=== PATIENT | female | born 1955 | race Two or more races ===

== ENCOUNTER 2018-08-24 11:14 | Outpatient (CLI) | payer OTHER ==
[~2018-08-24 11:14] MED LIST: ASA81 MG PO; ATACAND32 MG PO; CIPRO500 MG PO; IMDUR30 MG PO; LOSARTAN-HCTZ1 EAC1 PO; NITROQUICK0.4 MG SL; NORVASC2.5 MG PO; NORVASC5 MG PO; PLAVIX75 MG PO; POLY119PG PO; PREVACID30 MG PO; PRILOSEC20 MG PO; SURFAK240 M1 PO; SYNTHROID50 MCG PO; ULTRACET PO; VASOTEC10 MG NGT; [UNRECOGNIZED DRUG - OTHER]
== END 2018-08-24 11:38 | disposition home or self-care (01) ==
LOC: RAD 501 11:14
DX: R07.89 Other chest pain (principal)

== ENCOUNTER 2018-10-19 17:41 | Inpatient (IN) | payer OTHER ==
[~2018-10-19] VITALS: Ht 160 cm; Wt 131.1 kg
[~2018-10-19 17:41] MED LIST changes: -COUMADIN4 MG PO; -COZAAR50 MG; -HYDROCHLOROTH12.5 MG PO; -INDUR; -LOSARTAN POTAS100 MG PO; -TOPROL XL25 MG; -TOPROL XL50 M1 PO
[2018-10-19] MEDS ORDERED: TOPROL XL25 MG (17:52)
[2018-10-19] MEDS ORDERED: INDUR (17:52)
[2018-10-19] MEDS ORDERED: COZAAR50 MG (17:53)
--- NOTE | 2018-10-19 18:00 | NUR ---
SE RECIBE PTE LA CUAL LLEGA ER POR ORDEN DE DR. ONTIVEROS LA MISMA REFIERE PRESENTAR DVT EN MAURIZIO PHAM. SE OBSERVA PIERNA IZQ INFLAMADA.
--- NOTE | 2018-10-19 18:51 | NUR ---
MS RIOS ORIENTA PTE SOBRE ADMNISTRACION DE MEDICAMENTO LA CUAL SE REALIZA LIZBET ORDEN MEDICA.
[2018-10-27] MEDS ORDERED: TOPROL XL50 M1 PO ×2 (09:48)
[2018-10-27] MEDS ORDERED: LOSARTAN POTAS100 MG PO ×2 (09:48)
[2018-10-27] MEDS ORDERED: HYDROCHLOROTH12.5 MG PO ×2 (09:49)
[2018-10-27] MEDS ORDERED: COUMADIN4 MG PO ×2 (09:50)
== END 2018-10-27 12:29 | disposition home or self-care (01) | DRG 301 ==
LOC: ER 17:41 → SURH 20:28 → SEC-K 20:28 → SURG 10-20 00:35 → SURH 10-20 00:36 → MEDI 10-23 16:44
PROVIDERS: ADMIT Internal Medicine
DX: I82.492 Acute embolism and thrombosis of other specified deep vein of left lower extremity (principal); E66.01 Morbid (severe) obesity due to excess calories; I11.9 Hypertensive heart disease without heart failure

== ENCOUNTER → 2018-10-19 | Outpatient (CLI) | payer OTHER ==
[~2018-10-19] MED LIST changes: +COUMADIN4 MG PO; +COZAAR50 MG; +HYDROCHLOROTH12.5 MG PO; +INDUR; +LOSARTAN POTAS100 MG PO; +TOPROL XL25 MG; +TOPROL XL50 M1 PO
== END | disposition home or self-care (01) ==
LOC: NUCLEAR 14:38
DX: I82.402 Acute embolism and thrombosis of unspecified deep veins of left lower extremity (principal)

== ENCOUNTER → 2018-12-24 | Outpatient (CLI) | payer OTHER ==
[~2018-12-24] MED LIST changes: +COUMADIN4 MG PO; +COZAAR50 MG; +HYDROCHLOROTH12.5 MG PO; +INDUR; +LOSARTAN POTAS100 MG PO; +TOPROL XL25 MG; +TOPROL XL50 M1 PO
== END | disposition home or self-care (01) ==
LOC: NUCLEAR 15:17
DX: I82.502 Chronic embolism and thrombosis of unspecified deep veins of left lower extremity (principal)

== ENCOUNTER → 2019-01-12 09:27 | Outpatient (CLI) | payer OTHER | END | disposition home or self-care (01) | LOC: LAB 08:25 | DX: I82.502 Chronic embolism and thrombosis of unspecified deep veins of left lower extremity (principal); D64.89 Other specified anemias; I10 Essential (primary) hypertension; E78.00 Pure hypercholesterolemia, unspecified; N39.0 Urinary tract infection, site not specified; E03.8 Other specified hypothyroidism; E11.69 Type 2 diabetes mellitus with other specified complication; E11.29 Type 2 diabetes mellitus with other diabetic kidney complication; Z12.31 Encounter for screening mammogram for malignant neoplasm of breast; R19.5 Other fecal abnormalities; E55.9 Vitamin D deficiency, unspecified; M32.8 Other forms of systemic lupus erythematosus ==

== ENCOUNTER 2019-01-12 11:10 | Outpatient (CLI) | payer OTHER | END 2019-01-12 11:17 | disposition home or self-care (01) | LOC: MAMO-SONO 11:10 | DX: Z12.31 Encounter for screening mammogram for malignant neoplasm of breast (principal); Z87.898 Personal history of other specified conditions; N63.10 Unspecified lump in the right breast, unspecified quadrant; N63.20 Unspecified lump in the left breast, unspecified quadrant ==

== ENCOUNTER 2019-05-24 21:24 | Emergency (ER) | payer OTHER ==
[~2019-05-24] VITALS: Ht 160 cm; Wt 128.8 kg
[2019-05-24] MEDS ORDERED: ECOTRIN325 M1 (23:12)
[2019-05-24] MEDS ORDERED: SYNTHROID75 MCG (23:12)
[2019-05-24] MEDS ORDERED: MELOXICAM15 MG (23:12)
[2019-05-25] MEDS ORDERED: ULTRACET PO (01:35)
[2019-05-25] MEDS ORDERED: NAPROXEN500 MG PO (01:35)
== END 2019-05-25 01:44 | disposition home or self-care (01) ==
LOC: ER 21:24
DX: S86.811A Strain of other muscle(s) and tendon(s) at lower leg level, right leg, initial encounter (principal); X50.0XXA Overexertion from strenuous movement or load, initial encounter; Y93.89 Activity, other specified; Y92.89 Other specified places as the place of occurrence of the external cause; Y99.8 Other external cause status

== ENCOUNTER 2023-01-22 10:38 | Outpatient (CLI) | payer OTHER ==
[~2023-01-22 10:38] MED LIST changes: +ECOTRIN325 M1; +MELOXICAM15 MG; +NAPROXEN500 MG PO; +SYNTHROID75 MCG
== END 2023-01-22 10:48 | disposition home or self-care (01) ==
LOC: RAD 10:38
PROVIDERS: ATTEND Internal Medicine
DX: M19.91 Primary osteoarthritis, unspecified site (principal); S00.83XA Contusion of other part of head, initial encounter

== ENCOUNTER 2023-02-28 10:57 | Outpatient (CLI) | payer OTHER | END 2023-02-28 13:56 | disposition home or self-care (01) | LOC: MRI 10:57 | PROVIDERS: ATTEND Orthopaedic Surgery | DX: S83.200A Bucket-handle tear of unspecified meniscus, current injury, right knee, initial encounter (principal); S83.201A Bucket-handle tear of unspecified meniscus, current injury, left knee, initial encounter | CPT/HCPCS: 73721 ==

== ENCOUNTER 2023-03-25 10:48 | Emergency (ER) | payer OTHER ==
[~2023-03-25] VITALS: Ht 152.4 cm; Wt 124.7 kg
[2023-03-25] MEDS ORDERED: PAXLOVID 300-11 EACH PO (15:11)
== END 2023-03-25 15:49 | disposition home or self-care (01) ==
LOC: ER 10:48
PROVIDERS: General Practice
DX: S09.8XXA Other specified injuries of head, initial encounter (principal); W18.39XA Other fall on same level, initial encounter; Y93.89 Activity, other specified; Y92.89 Other specified places as the place of occurrence of the external cause; Z91.040 Latex allergy status; E11.9 Type 2 diabetes mellitus without complications; E78.00 Pure hypercholesterolemia, unspecified; I10 Essential (primary) hypertension; U07.1 COVID-19

== ENCOUNTER 2023-05-20 12:16 | Outpatient (CLI) | payer OTHER ==
[~2023-05-20 12:16] MED LIST changes: +PAXLOVID 300-11 EACH PO
== END 2023-05-20 12:17 | disposition home or self-care (01) ==
LOC: TOM 12:16
PROVIDERS: ATTEND Internal Medicine
DX: J44.1 Chronic obstructive pulmonary disease with (acute) exacerbation (principal); U07.1 COVID-19

== ENCOUNTER 2023-06-20 17:29 | Emergency (ER) | payer OTHER ==
[~2023-06-20] VITALS: Ht 160 cm; Wt 126.1 kg
[2023-06-20] MEDS ORDERED: [UNRECOGNIZED DRUG - OTHER] (18:34)
[2023-06-20] MEDS ORDERED: LASIX20 MG PO (18:34)
[2023-06-20] MEDS ORDERED: PROTONIX40 M1 PO (18:34)
[2023-06-20 21:06] LABS: HEMATOCRIT 41.7 % (36.0-45.00); HEMOGLOBIN 13.8 g/dL (12.0-15.00); MEAN CELL VOLUME 83.5 fL (80.00-100.00); MEAN CORPUSCULAR HEMOGLOBIN 27.7 pg (27.00-32.0); MEAN CORPUSCULAR HGB CONC 33.2 g/dl (32.0-36.0); PLATELET COUNT 311 K/uL (150-450); RED CELL DISTRIBUTION WIDTH 15.7 % (11.5-14.5)
[2023-06-20 21:07] LABS: URINE APPEARANCE Clear; URINE BILIRRUBIN Negative (NEGATIVE); URINE BLOOD Negative; URINE COLOR Yellow; URINE GLUCOSE Negative (NEGATIVE); URINE LEUKOCYTE Small; URINE NITRATE Negative; URINE PROTEIN Negative (NEGATIVE); URINE UROBILINOGEN 0.2 E.U./dl
[2023-06-20 21:11] LABS: URINE BACTERIA 74.3 uL (0.0-1933); URINE EPITHELIAL CELLS 8.6 uL (0.0-38.8); URINE RBC 3.5 uL (0.0-20.8); URINE WBC 38.1 uL (0.0-23.2)
[2023-06-20 21:31] LABS: BILIRUBIN TOTAL 0.71 mg/dL (0.3-1.2); BILIRUBIN,CONJUGATED 0.22 mg/dL (0.0-0.2); BILIRUBIN,UNCONJUGATED 0.49 mg/dL (0.0-0.6); CALCIUM 9.4 mg/dL (8.5-10.1); CREATININE SERUM 0.9 mg/dL (0.55-1.02); GFR 62.08; POTASSIUM 4.25 mEq/L (3.5-5.1)
[2023-06-21] MEDS ORDERED: CIPRO500 MG PO (00:07)
[2023-06-21] MEDS ORDERED: METRONIDAZOLE500 MG PO (00:07)
[2023-06-21] MEDS ORDERED: PEPCID AC20 MG PO (00:07)
[2023-06-21] MEDS ORDERED: DICY20TA PO (00:07)
[2023-06-21] MEDS ORDERED: INTESTINEX680 M1 PO (00:07)
== END 2023-06-21 00:24 | disposition home or self-care (01) ==
LOC: ER 17:30
PROVIDERS: General Practice
DX: K57.92 Diverticulitis of intestine, part unspecified, without perforation or abscess without bleeding (principal); I10 Essential (primary) hypertension; E11.9 Type 2 diabetes mellitus without complications; Z79.84 Long term (current) use of oral hypoglycemic drugs; Z91.040 Latex allergy status
CPT/HCPCS: 36415; 74177; 96365; 96366; 99284; J2405; J3490; Q9965

== ENCOUNTER 2023-10-04 12:00 | Emergency (ER) | payer OTHER ==
[~2023-10-04] VITALS: Ht 160 cm; Wt 131.5 kg
[~2023-10-04 12:00] MED LIST changes: +DICY20TA PO; +INTESTINEX680 M1 PO; +LASIX20 MG PO; +METRONIDAZOLE500 MG PO; +PEPCID AC20 MG PO; +PROTONIX40 M1 PO; +[UNRECOGNIZED DRUG - OTHER]
[2023-10-04] MEDS ORDERED: CRESTOR10 MG PO (13:07)
[2023-10-04] MEDS ORDERED: CANDESARTAN CIL32 MG PO (13:07)
[2023-10-04 14:06] LABS: HEMATOCRIT 34.8 % (36.0-45.00); HEMOGLOBIN 11.6 g/dL (12.0-15.00); MEAN CELL VOLUME 83.8 fL (80.00-100.00); MEAN CORPUSCULAR HEMOGLOBIN 27.9 pg (27.00-32.0); MEAN CORPUSCULAR HGB CONC 33.3 g/dl (32.0-36.0); PLATELET COUNT 282 K/uL (150-450); RED BLOOD COUNT 4.16 M/uL (4.00-6.00)
[2023-10-04 14:38] LABS: ALBUMIN 3.4 gm/dL (3.4-5.0); BILIRUBIN TOTAL 0.78 mg/dL (0.3-1.2); CALCIUM 9.1 mg/dL (8.5-10.1); CREATININE SERUM 0.82 mg/dL (0.55-1.02); GFR 69.12; GLOBULINA 3.2 G/DL (2.4-3.5); POTASSIUM 3.9 mEq/L (3.5-5.1); TOTAL PROTEIN 6.6 gm/dL (6.4-8.2)
== END 2023-10-04 19:29 | disposition home or self-care (01) ==
LOC: ER 12:00
PROVIDERS: General Practice
DX: K62.5 Hemorrhage of anus and rectum (principal); I10 Essential (primary) hypertension; Z91.040 Latex allergy status

== ENCOUNTER 2023-10-30 08:42 | Outpatient (CLI) | payer OTHER ==
[~2023-10-30 08:42] MED LIST changes: +CANDESARTAN CIL32 MG PO; +CRESTOR10 MG PO
== END 2023-10-30 08:46 | disposition home or self-care (01) ==
LOC: RX STUDY 08:42
PROVIDERS: ATTEND Internal Medicine Gastroenterology
DX: R10.13 Epigastric pain (principal); K92.1 Melena

== ENCOUNTER 2024-06-10 12:25 | Outpatient (CLI) | payer OTHER ==
[~2024-06-10 12:25] MED LIST changes: +ASA81 MG; +ISOSORBIDE MON120 MG; +RANITIDINE HCL150 M1
== END 2024-06-10 12:42 | disposition home or self-care (01) ==
LOC: TOM 12:25
PROVIDERS: ATTEND Internal Medicine Pulmonary Disease
DX: R91.1 Solitary pulmonary nodule (principal)